=== PATIENT | female | born 1950 | race Caucasian/White ===

== ENCOUNTER 2018-01-03 16:15 | Emergency (ER) | payer OTHER ==
[2018-01-03] MEDS ORDERED: Acetaminophen 500 MG TAB ONE (17:34)
== END 2018-01-03 17:37 | disposition home or self-care (01) ==
LOC: ERS 16:15
DX: M54.2 Cervicalgia (principal); M40.205 Unspecified kyphosis, thoracolumbar region; R51 Headache; F31.9 Bipolar disorder, unspecified; G43.909 Migraine, unspecified, not intractable, without status migrainosus; Z79.899 Other long term (current) drug therapy; V49.60XA Unspecified car occupant injured in collision with unspecified motor vehicles in traffic accident, initial encounter
CPT/HCPCS: 99283

== ENCOUNTER 2018-02-04 16:32 | Emergency (ER) | payer SELFPAY ==
[2018-02-04] MEDS ORDERED: Ondansetron PF 4 MG/2 ML Vial ONE (18:14)
[2018-02-04] MEDS ORDERED: diphenhydrAMINE 50 MG/ML VIAL ONE (18:14)
[2018-02-04] MEDS ORDERED: Ketorolac Tromethamine 30 MG/ML VIAL ONE (18:14)
[2018-02-04] MEDS ORDERED: Metoclopramide HCl 10 MG/2 ML VIAL ONE (18:14)
[2018-02-04] MEDS ORDERED: methylPREDNISolone Sod Succ/PF 125 MG/2 ML VIAL ONE ×2 (19:32→19:47)
[2018-02-04] MEDS ORDERED: Magnesium 2 GM/50 ML BAG (IN WATER) ONE (19:32)
== END 2018-02-04 20:58 | disposition home or self-care (01) ==
LOC: ERS 16:32
DX: G43.909 Migraine, unspecified, not intractable, without status migrainosus (principal); G30.9 Alzheimer's disease, unspecified; F02.80 Dementia in other diseases classified elsewhere, unspecified severity, without behavioral disturbance, psychotic disturbance, mood disturbance, and anxiety; I10 Essential (primary) hypertension; F31.9 Bipolar disorder, unspecified; F41.0 Panic disorder [episodic paroxysmal anxiety]
CPT/HCPCS: 96365; 96367; 96375; J1200; J1885; J2405; J2765; J2930

== ENCOUNTER 2018-07-26 14:19 | Outpatient (CLI) | payer MEDICARE, SELFPAY ==
--- NOTE | 2018-07-26 15:00 | MMO ---
Bilateral MAMMO Bilat Screen [facility]. CLINICAL HISTORY: Patient is 68 years old and is seen for screening. The patient has no family history of breast cancer. The patient has no personal history of cancer. VIEWS: The views performed were: bilateral craniocaudal with tomosynthesis and bilateral mediolateral oblique with tomosynthesis. MAMMOGRAM FINDINGS: The breasts are heterogeneously dense, which could obscure a lesion on mammography. There are benign appearing calcifications seen in both breasts. There are no suspicious masses, suspicious calcifications, or new areas of architectural distortion. IMPRESSION: THERE IS NO MAMMOGRAPHIC EVIDENCE OF MALIGNANCY. A ROUTINE FOLLOW-UP MAMMOGRAM IN 1 YEAR IS RECOMMENDED. THE RESULTS OF THIS EXAM WERE SENT TO THE PATIENT. ACR BI-RADS Category 2 - Benign finding MAMMOGRAPHY NOTE: 1. A negative mammogram report should not delay a biopsy if a dominant of clinically suspicious mass is present. 2. Approximately 10% to 15% of breast cancers are not detected by mammography. 3. Adenosis and dense breasts may obscure an underlying neoplasm.
--- NOTE | 2018-07-26 16:00 | ULT ---
US Pelvic Transvag HISTORY: Postmenopausal bleeding COMPARISON: None. FINDINGS: Real-time imaging of the pelvis was obtained both transabdominally as well as with an endov aginal probe. The uterus measures 2.3 x 5.4 x 5.3 cm. The endometrium is in the 4 mm range. No focal fibroids are seen. The uterus appears heterogeneous. Neither right or left ovary is identified. IMPRESSION: No uterine mass identified. No significant endometrial thickening. Some minimal fluid is seen within the endometrium.
== END 2018-07-26 14:20 | disposition home or self-care (01) ==
LOC: BICMAMMO 14:19
PROVIDERS: ATTEND Family Medicine
DX: Z12.31 Encounter for screening mammogram for malignant neoplasm of breast (principal); N95.0 Postmenopausal bleeding
CPT/HCPCS: 76856; 77063; 77067

== ENCOUNTER 2020-03-13 10:59 | Inpatient (IN) | payer MEDICARE ==
[2020-03-13 11:42] LABS: #Lymphocytes 0.8 thou/uL (1.20-3.40); #Monocytes 0.7 thou/uL (0.11-0.59); #Neutrophils 14.2 thou/uL (1.40-6.50); %Basophils 0.3 % (0.0-1.0); %Eosinophils 0.1 % (0.0-10.0); %Lymphocytes 5.2 % (21.0-51.0); %Monocytes 4.6 % (0.0-10.0); %Neutrophils 89.9 % (42.0-75.0); Hemoglobin 13.6 g/dL (12.0-16.0); Mean Corpuscular HGB CONC 32.4 g/dL (32.0-36.0); Mean Corpuscular Volume 95.5 fL (78.0-98.0); Platelet Count 124 thou/uL (130-400); RBC Distribution Width 12.7 % (11.5-14.5); White Blood Cell (WBC) Count 15.8 thou/uL (4.8-10.8)
[2020-03-13 11:43] LABS: PTT 23.1 sec (22.9-36.1); Prothrombin Time 13.5 sec (12.0-14.7)
[2020-03-13 12:22] LABS: CKMB 9.5 ng/mL (0-6.6)
[2020-03-13 12:25] LABS: Bacteria/HPF None Seen HPF (None Seen); Bilirubin Negative (Negative); Blood, Urine 3+ (Negative); Clarity Clear (Clear); Glucose, Urine (Dipstick) Normal (Negative); Ketone, Urine 60 mg/dL (Negative); Leukocyte Negative Leu/uL (Negative); Nitrite Negative (Negative); Protein, Urine (Dipstick) 100 mg/dL (Neg-Trace); Specific Gravity, Urine 1.022 (1.002-1.036); Squamous Epithelial 0-3 HPF (0-3); Transitional Epithelial 0-3 HPF (None Seen); Urobilinogen Normal mg/dL (Less than 2)
[2020-03-13] MEDS ORDERED: Cefepime 2 GM VIAL ONE ×2 (12:36→22:45)
[2020-03-13 12:43] LABS: ALT (SGPT) 27 U/L (8-55); AST (SGOT) 49 U/L (5-34); Albumin 4.1 g/dL (3.4-4.8); Alkaline Phosphatase 108 U/L (40-110); Anion Gap 19 mmol/L (10-20); BUN (Urea Nitrogen) 13 mg/dL (9.8-20.1); Bilirubin, Total 0.9 mg/dL (0.2-1.2); CK (CPK) 665 U/L (29-168); Calc. Creatinine Clearance 0 mL/min (70-130); Calcium 9.6 mg/dL (7.8-10.44); Carbon Dioxide 22 mmol/L (23-31); Chloride 98 mmol/L (98-107); Globulin 4.9 g/dL (2.4-3.5); Glucose 139 mg/dL (83-110); Potassium 6.1 mmol/L (3.5-5.1); Sodium 133 mmol/L (136-145)
--- NOTE | 2020-03-13 12:55 | RAD ---
EXAM: Portable chest PROVIDED CLINICAL HISTORY: Altered mental status COMPARISON: None FINDINGS: Cardiac and mediastinal silhouette is within normal limits. No focal consolidation, pleural fluid or pneumothorax evident. IMPRESSION: No evidence for an acute cardiopulmonary process.
[2020-03-13] MEDS ORDERED: Acetaminophen 325 MG Suppository ONE (13:13)
[2020-03-13] MEDS ORDERED: Acetaminophen 650 MG Suppository ONE (13:13)
[2020-03-13] MEDS ORDERED: Vancomycin HCl 1.25 GM in Sodium Chloride 0.9% 250 ML 250 ML IVPB SCH (13:15)
[2020-03-13] MEDS ORDERED: Dextrose 50% Abboject 50 ML SYRINGE ONE (13:16)
[2020-03-13] MEDS ORDERED: Calcium Chloride 1 GM/10 ML Abboject SYRINGE ONE (13:16)
--- NOTE | 2020-03-13 13:41 | CT ---
EXAM: BRAIN CT WITHOUT IV CONTRAST: 03/13/20 HISTORY: Altered mental status. COMPARISON: None. FINDINGS: Minimal atrophy changes are noted bilaterally. There is some subtle bilateral white matter and subcor tical low attenuation foci evidence for chronic white matter ischemic change. No focal mass or midlin e shift. No intra or extra-axial hemorrhage. Minimal right frontal sinus mucosal change. IMPRESSION: No mass, bleed or other significant acute process. POS: OFF
[2020-03-13] MEDS ORDERED: Ondansetron PF 4 MG/2 ML Vial IVP PRN (13:42)
[2020-03-13] MEDS ORDERED: Lidocaine 1% w/Epinephrine 1:100K 20 ML VIAL ONE (13:44)
--- NOTE | 2020-03-13 14:10 | RAD ---
Exam: Abdomen one view HISTORY: MRI clearance FINDINGS: There appear to be mildly dilated air-filled loops of small bowel. There are no suspicious radiopaque densities projecting over the abdomen and visualized upper pelvis. No acute osseous abnormalities. IMPRESSION: No radiopaque metallic densities in the visualized abdomen.
[2020-03-13 14:16] LABS: Anion Gap 17 mmol/L (10-20); BUN (Urea Nitrogen) 12 mg/dL (9.8-20.1); Calc. Creatinine Clearance 0 mL/min (70-130); Calcium 8.8 mg/dL (7.8-10.44); Carbon Dioxide 21 mmol/L (23-31); Chloride 102 mmol/L (98-107); Glucose 120 mg/dL (83-110); Magnesium 1.6 mg/dL (1.6-2.6); Potassium 3.7 mmol/L (3.5-5.1); Sodium 136 mmol/L (136-145)
--- NOTE | 2020-03-13 14:54 | MRI ---
MRI BRAIN NONCONTRAST: DATE: 03/13/2020 HISTORY: 70-year-old female with altered mental status FINDINGS: There is ventriculomegaly, probably due to brain parenchymal volume loss. There is no obstructive hyd rocephalus. There is no midline shift or any other evidence of mass effect. There is no extra-axial fluid collection. There are mild chronic ischemic white matter changes due to microvascular atheroscl erosis. There is diffuse brain parenchymal volume loss, not unusual for patient's age. There is no evidence of recent hemorrhage or restricted diffusion. IMPRESSION: 1) Involutional changes and mild chronic ischemic white matter changes. 2) otherwise negative
[2020-03-13 15:25] LABS: Lactic Acid 2.7 mmol/L (0.5-2.2)
[2020-03-13 15:30] LABS: Troponin I 0.095 ng/mL (< 0.028)
--- NOTE | 2020-03-13 16:19 | ULT ---
Venous duplex sonogram right lower extremity HISTORY: Right leg pain and edema. FINDINGS: The right common femoral vein and greater saphenous junction were evaluated along with the femoral, deep femoral, popliteal, and posterior tibial veins. There is good color and spectral Doppler flow, compression, and augmentation. IMPRESSION : Normal exam.
[2020-03-13] MEDS: Sodium Chloride 0.9% 1,000 ML IV SCH (17:04)
[2020-03-13 17:55] LABS: Troponin I 0.113 ng/mL (< 0.028)
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
--- NOTE | 2020-03-13 19:30 | PDOC.EVN ---
Event Note - Event Note Event Note: pt more awake and was noted to have erythema to her right lower ext. Case discussed with ER physician will not do LP since we do not think it is meningitis. will continue broad spectrum abx.
[2020-03-13 22:04] LABS: Lactic Acid 1.6 mmol/L (0.5-2.2)
[2020-03-13 22:13] LABS: Troponin I 0.095 ng/mL (< 0.028)
[2020-03-13 22:45] LABS: SARS-CoV-2 MS2 Positive; SARS-CoV-2 N Gene Negative; SARS-CoV-2 S Gene Negative; SARS-CoV-2 by NAA Not Detected (NotDetected); SARS-CoV-2 orf1ab Negative
[2020-03-13] MEDS: Atorvastatin Calcium 40 MG TAB PO SCH (22:47)
[2020-03-13] MEDS: Cefepime 2 GM in Sodium Chloride 0.9% 100 ML IVPB SCH (22:48)
[2020-03-14 01:37] LABS: Troponin I 0.085 ng/mL (< 0.028)
[2020-03-14 02:17] VITALS: BMI 27.5
[2020-03-14] MEDS: Vancomycin HCl 1.25 GM in Sodium Chloride 0.9% 250 ML 250 ML IVPB SCH ×2 (03:39→17:10)
[2020-03-14] MEDS ORDERED: Magnesium 2 GM/50 ML 2 GM in Premix Bag 1 BAG IVPB SCH (05:30)
[2020-03-14 06:01] LABS: Anion Gap 11 mmol/L (10-20); BUN (Urea Nitrogen) 14 mg/dL (9.8-20.1); Calc. Creatinine Clearance 97 mL/min (70-130); Calcium 7.9 mg/dL (7.8-10.44); Carbon Dioxide 21 mmol/L (23-31); Cardiac Risk 2.7 (Less than 4.5); Chloride 107 mmol/L (98-107); Cholesterol 128 mg/dl (< 200 Desired); Glucose 165 mg/dL (83-110); HDL Cholesterol 47 mg/dL (>60 Neg Risk); LDL Cholesterol, Calculated 66 mg/dL; Potassium 3.2 mmol/L (3.5-5.1); Sodium 136 mmol/L (136-145); Triglycerides 74 mg/dL (Less than 150)
[2020-03-14] MEDS: Cefepime 2 GM in Sodium Chloride 0.9% 100 ML IVPB SCH ×3 (06:34→21:45)
[2020-03-14 07:23] LABS: #Lymphocytes 0.7 thou/uL (1.20-3.40); #Monocytes 0.5 thou/uL (0.11-0.59); #Neutrophils 4.9 thou/uL (1.40-6.50); %Basophils 0.2 % (0.0-1.0); %Eosinophils 0.4 % (0.0-10.0); %Lymphocytes 10.8 % (21.0-51.0); %Monocytes 8.8 % (0.0-10.0); %Neutrophils 79.7 % (42.0-75.0); Hemoglobin 10.7 g/dL (12.0-16.0); Mean Corpuscular HGB CONC 32.5 g/dL (32.0-36.0); Mean Corpuscular Hemoglobin 31.1 pg (27.0-31.0); Mean Corpuscular Volume 95.9 fL (78.0-98.0); Mean Platelet Volume 10.5 fL (7.4-10.4); Platelet Count 84 thou/uL (130-400); Platelet Morphology Comment Appears Decreased; RBC Distribution Width 12.6 % (11.5-14.5); Red Blood Cell (RBC) Count 3.44 mill/uL (4.20-5.40); White Blood Cell (WBC) Count 6.1 thou/uL (4.8-10.8)
[2020-03-14 07:46] LABS: Amphetamine Not Detected (NotDetected); Barbiturates Screen Not Detected (NotDetected); Benzodiazepine Screen Not Detected (NotDetected); Cocaine Metabolite Screen Not Detected (NotDetected); Medtox Control Line Valid? VALID (VALID); Medtox Reader # READER 1; Methadone Not Detected (NotDetected); Methamphetamine Not Detected (NotDetected); Opiate Screen Not Detected (NotDetected); Oxycodone Screen Not Detected (NotDetected); Phencyclidine (PCP) Not Detected (NotDetected); THC/Cannabinoid Screen Not Detected (NotDetected); Tricyclic Screen Not Detected (NotDetected)
[2020-03-14] MEDS: Sodium Chloride 0.9% 1,000 ML IV SCH (08:25)
[2020-03-14] MEDS: Aspirin 81 mg Enteric Coated Tablet PO SCH (08:26)
[2020-03-14] MEDS: Enoxaparin Sodium 40 MG/0.4 ML SYRINGE SC SCH (08:26)
[2020-03-14] MEDS ORDERED: Electrolyte Replacement Protocol 1 EACH FS SCH (09:00)
--- NOTE | 2020-03-14 12:14 | CON ---
DATE OF CONSULTATION: 03/14/2020 CONSULTING PHYSICIAN: Hospitalist Service. IMPRESSION: Painful swollen right leg suspicious for deep venous thrombosis. PLAN: Workup as you feel indicated. HISTORY OF PRESENT ILLNESS: Ms. Haque is an elderly lady who presented with complaints of several days of progressive pain in her right leg. She has also noted some swelling. 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 The leg began to feel more heavy and so she came in for evaluation. She had an MRI of the brain done, which did not reveal any evidence of an acute ischemic event. She denies any tingling or numbness. She has not had any problems with the right arm or face. PAST MEDICAL HISTORY: Otherwise unremarkable. ALLERGIES: PENICILLIN. SOCIAL HISTORY: No tobacco or alcohol use. FAMILY HISTORY: Noncontributory. REVIEW OF SYSTEMS: Ten-system review of systems is otherwise negative. PHYSICAL EXAMINATION: GENERAL: She is a slightly overweight, elderly woman, lying in bed, in no acute distress. VITAL SIGNS: Have been stable. She is afebrile. HEENT: Pupils are equal and reactive. Conjunctivae are clear. NECK: Supple. EXTREMITIES: There is swelling of the right calf with tenderness to palpation. SKIN: Unremarkable. NEUROLOGIC: She is alert and appropriate. Her speech is fluent and clear. She does not have any focal neurologic deficits. SUMMARY: This is an elderly woman with a painful swollen right leg. She has ruled out for stroke. Job ID: [id number]
[2020-03-14] MEDS: Acetaminophen 325 MG TAB PO PRN ×2 (13:00→22:58)
[2020-03-14] MEDS ORDERED: Potassium Chloride 20 MEQ TAB PO SCH (13:45)
[2020-03-14] MEDS ORDERED: Polyethylene Glycol 3350 17 GM Packet PO SCH (14:45)
[2020-03-14] MEDS ORDERED: Diltiazem 125 MG in Sodium Chloride 0.9% 100 ML IVPB SCH (16:15)
--- NOTE | 2020-03-14 17:37 | RAD ---
RIGHT HIP TWO VIEWS: 03/14/20 INDICATION: History of right hip pain. FINDINGS: There is mild right hip osteoarthrosis. There is an ossific density within the soft tissues medial to the right hip that cannot be further localized. IMPRESSION: 1. Mild right hip osteoarthrosis. 2. Small ossific density is seen within the medial soft tissues of the right thigh. POS: BH
--- NOTE | 2020-03-14 19:02 | PDOC.HOSPP ---
- Subjective Encounter Date: 03/14/20 Encounter Time: 11:30 Subjective: Patient up in bed pains. She is more awake and oriented - Objective Vital Signs & Weight: Vital Signs (12 hours) Temp Pulse Pulse Pulse Resp BP BP 03/14/20 15:48 134 H 03/14/20 15:45 133 H 03/14/20 15:44 140 H 03/14/20 15:42 132 H 03/14/20 15:37 134 H 03/14/20 15:27 98.3 F 134 H 20 03/14/20 14:20 80 85 121/73 158/73 H 03/14/20 13:02 87 03/14/20 11:38 98.4 F 62 19 03/14/20 08:37 88 85 152/70 H 142/69 H 03/14/20 07:22 98.2 F 78 17 BP Pulse Ox 03/14/20 15:48 117/68 03/14/20 15:45 106/78 03/14/20 15:44 114/88 03/14/20 15:42 112/84 03/14/20 15:37 136/81 03/14/20 15:27 136/87 94 L 03/14/20 14:20 03/14/20 13:02 135/83 03/14/20 11:38 136/70 96 03/14/20 08:37 03/14/20 07:22 127/96 H 95 Weight Weight 191 lb 12.8 oz I&O: 03/13/20 03/14/20 03/15/20 06:59 06:59 06:59 Intake Total 720 Output Total 5 Balance 715 Result Diagrams: 03/14/20 04:51 03/14/20 04:51 Hospitalist ROS - Review of Systems Cardiovascular: denies: chest pain, palpitations, orthopnea, paroxysmal noc. dyspnea, edema, light headedness, other Gastrointestinal: denies: nausea, vomiting, abdominal pain, diarrhea, constipation, melena, hematochezia, other Genitourinary: denies: dysuria, frequency, incontinence, hematuria, retention, other - Medication Medications: Active Medications Generic Name Dose Route Start Last Admin Trade Name Freq PRN Reason Stop Dose Admin Acetaminophen 650 mg 03/13/20 13:42 03/14/20 13:00 Acetaminophen 325 Mg Tab PO 650 mg Q6H PRN Administration Headache/Fever/Mild Pain (1-3) Aspirin 81 mg 03/14/20 09:00 03/14/20 08:26 Aspirin 81 Mg Enteric Coated Tablet PO 81 mg DAILY JAYCOB Administration Atorvastatin Calcium 40 mg 03/13/20 21:00 03/13/20 22:47 Atorvastatin Calcium 40 Mg Tab PO 40 mg HS JAYCOB Administration Enoxaparin Sodium 40 mg 03/14/20 09:00 03/14/20 08:26 Enoxaparin Sodium 40 Mg/0.4 Ml Syringe SC 40 mg 0900 JAYCOB Administration Vancomycin HCl 1.25 gm/ Sodium 250 mls @ 166.67 mls/hr 03/14/20 03:00 03/14/20 17:10 Chloride IVPB 250 mls 0300,1500 JAYCOB Administration Cefepime HCl 2 gm/ Sodium 100 mls @ 200 mls/hr 03/13/20 22:00 03/14/20 13:00 Chloride IVPB 100 mls Q8HR JAYCOB Administration Diltiazem HCl 125 mg/ Sodium 125 mls @ 5 mls/hr 03/14/20 16:15 03/14/20 17:10 Chloride IVPB 125 mls INF JAYCOB Administration Protocol 5 MG/HR - Exam Heart: negative: RRR, no murmur, no gallops, no rubs, normal peripheral pulses, irregular, diminshed peripheral pulses, murmur present, II/IV, III/IV Respiratory: negative: CTAB, no wheezes, no rales, no ronchi, normal chest expansion, no tachypnea, normal percussion, rales, rhonchi, tachypneic, wheezes Gastrointestinal: negative: soft, non-tender, non-distended, normal bowel sounds, no palpable masses, no hepatomegaly, no splenomegaly, no bruit, no guarding, no rigidity, tender to palpation, distended, diminished bowl sounds, voluntary guarding Extremities: 1+ LE edema Extremities - other findings: Right lower leg erythema noted Hosp A/P (1) Acute metabolic encephalopathy Code(s): G93.41 - METABOLIC ENCEPHALOPATHY Status: Acute (2) Cellulitis of leg, right Code(s): L03.115 - CELLULITIS OF RIGHT LOWER LIMB Status: Acute (3) Atrial flutter Code(s): I48.92 - UNSPECIFIED ATRIAL FLUTTER Status: Acute (4) Lactic acidosis Code(s): E87.2 - ACIDOSIS Status: Acute (5) Hypokalemia Code(s): E87.6 - HYPOKALEMIA Status: Acute (6) Elevated troponin Code(s): R77.8 - OTHER SPECIFIED ABNORMALITIES OF PLASMA PROTEINS Status: Acute (7) Bacteremia Code(s): R78.81 - BACTEREMIA Status: Acute - Plan Continue antibiotics. Venous Doppler does not indicate any acute DVT. Patient's heart rate was elevated at 1 40-1 50 possible a flutter versus A. fib. Patient given Cardizem responded well. We will continue Cardizem drip and consult cardiology. Echo pending. Patient's mentation back at baseline.
[2020-03-14] MEDS: Senokot S 8.6-50 MG TAB PO SCH (21:45)
[2020-03-14] MEDS: Atorvastatin Calcium 40 MG TAB PO SCH (21:45)
[2020-03-15 02:37] LABS: Vancomycin, Trough 14.5 ug/mL
[2020-03-15] MEDS: Vancomycin HCl 1.25 GM in Sodium Chloride 0.9% 250 ML 250 ML IVPB SCH (03:05)
[2020-03-15] MEDS: Cefepime 2 GM in Sodium Chloride 0.9% 100 ML IVPB SCH ×2 (06:10→14:18)
[2020-03-15] MEDS: Acetaminophen 325 MG TAB PO PRN ×2 (06:10→14:18)
--- NOTE | 2020-03-15 08:50 | EKG ---
Test Reason : Blood Pressure : / mmHG Vent. Rate : 139 BPM Atrial Rate : 139 BPM P-R Int : 138 ms QRS Dur : 098 ms QT Int : 326 ms P-R-T Axes : 000 030 -08 degrees QTc Int : 496 ms Sinus tachycardia Incomplete right bundle branch block Marked ST abnormality, possible inferior subendocardial injury Abnormal ECG When compared with ECG of 13-MAR-2020 12:56, (Unconfirmed) No significant change was found Confirmed by KUNAL GENTILE, SFiona ([id number]) on 03/15/2020 8:50:09 AM Referred By: SEKOU Confirmed By:DR. Phil SYED MD
[2020-03-15] MEDS: Aspirin 81 mg Enteric Coated Tablet PO SCH (09:05)
[2020-03-15] MEDS: Polyethylene Glycol 3350 17 GM Packet PO SCH (09:07)
[2020-03-15] MEDS: Senokot S 8.6-50 MG TAB PO SCH ×2 (09:07→19:48)
[2020-03-15 09:29] LABS: Magnesium 1.8 mg/dL (1.6-2.6); Potassium 3.4 mmol/L (3.5-5.1)
[2020-03-15] MEDS ORDERED: Potassium Chloride 20 MEQ TAB PO SCH ×2 (10:00→14:00)
[2020-03-15] MEDS ORDERED: Magnesium 2 GM/50 ML 2 GM in Premix Bag 1 BAG IVPB SCH (10:00)
[2020-03-15] MEDS: Enoxaparin Sodium 40 MG/0.4 ML SYRINGE SC SCH (10:44)
[2020-03-15] MEDS ORDERED: Potassium Bicarbonate/Cit Ac 20 MEQ TAB PO SCH ×2 (11:00→15:30)
--- NOTE | 2020-03-15 15:52 | CON ---
DATE OF CONSULTATION: 03/15/2020 REASON FOR CONSULTATION: Cellulitis with bacteremia. HISTORY OF PRESENT ILLNESS: A 70-year-old, history of hypertension and recurrent episodes of cellulitis, she has had probably at least 3 or 4 in the past few years, who developed another one of such episodes in the right lower extremity associated with pain. Did not have any headaches. No respiratory symptoms. No abdominal pain, diarrhea, or genitourinary symptoms. PAST MEDICAL HISTORY: Hypertension, cellulitis, migraines. PAST SURGICAL HISTORY: x2. PAST PSYCHIATRIC HISTORY: History of bipolar disorder. SOCIAL HISTORY: She is more of a passive smoker in the past, but never actually smoked herself. 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 FAMILY HISTORY: Alzheimer disease. ALLERGIES: PENICILLIN WITH RASH WHEN SHE WAS A CHILD AND THIS IS A REPORT FROM HER MOTHER. CURRENT MEDICATION LIST: 1. Cefepime. 2. Lipitor. 3. Eliquis. PHYSICAL EXAMINATION: VITAL SIGNS: T-max 99, blood pressure 120/63, heart rate 67, respiratory rate 20, O2 saturation 97. GENERAL: Does not appear in distress. HEENT: Ocular movements conjugate. Sclerae white. Oral cavity with only a few remaining teeth with marked decay and gum disease. SKIN: Shows the area of erythema, circumferential distribution, very fairly narrow band in the lower right leg. She has quite a few spots with shallow ulcerations in the lower extremities and evidence of stasis dermatitis. Onychodystrophy is noted as well in toenails. No lymphadenopathy. NECK: Supple. No jugular venous distention. LUNGS: Symmetric, clear breath sounds. HEART: S1 and S2, regular rate without murmurs. No S3 or S4. ABDOMEN: Soft. Not distended. Some bladder distention. BACK: Some back tenderness. MUSCULOSKELETAL: Chronic osteoarthrosis, but no acute joint inflammatory process noted. Pulses are 1+ in dorsalis pedis. Plantar responses are flexor. Moves all extremities equally. NEUROLOGIC: Awake, oriented. Follows commands. Speech is normal. Orientation is normal. LABORATORY DATA: White cell count 15.8, down to 6.1; hemoglobin 10.7; MCV 95; platelets 84,000; 79% neutrophils. INR 1.0. Creatinine 0.73. Lactic acid 1.6. CK 665. Lactic acid 2.7. Urinalysis with 7 to 10 wbc's. Blood cultures with group G Streptococcus, one set. Urine culture negative. IMAGING STUDIES: We have an echocardiogram with EF 55% to 60%. There is a hip x-ray with osteoarthrosis. There is a vascular ultrasound with normal exam with a venous Doppler. There is an abdominal x-ray with no abnormalities noted. There is a brain MRI done on admission with involutional changes, ischemic white matter changes, otherwise negative. Finally, a chest x-ray with normal findings. ASSESSMENT: Hypertension, prior episodes of cellulitis, stasis dermatitis, venous insufficiency with another episode of cellulitis secondary to group G Streptococcus. At this point, switch her to cephazolin or cefazolin. Once there is further clinical improvement, transition to oral Keflex for discharge planning 500 t.i.d. and then suppressive Keflex 250 mg b.i.d. plus compression stockings. We will be glad to follow her up in the outpatient setting to coordinate and follow the prophylactic measures. She has chronic back issues and she is at risk of developing diskitis, osteomyelitis in the medium term, so we will have to continue monitoring for worsening back pain. She may require an evaluation for that depending on clinical course. Endocarditis is very unlikely since only one set was positive. Job ID: [id number]
--- NOTE | 2020-03-15 17:22 | PDOC.HOSPP ---
- Subjective Encounter Date: 03/15/20 Encounter Time: 13:00 Subjective: Patient up in bed no complaints - Objective Vital Signs & Weight: Vital Signs (12 hours) Temp Pulse Resp BP Pulse Ox 03/15/20 16:50 99.7 F H 75 20 139/72 95 03/15/20 15:59 98.9 F 78 20 135/79 98 03/15/20 11:18 98.3 F 67 20 121/63 97 03/15/20 07:22 98.3 F 73 20 137/74 96 Weight Weight 191 lb 12.8 oz I&O: 03/14/20 03/15/20 03/16/20 06:59 06:59 06:59 Intake Total 1445 480 Output Total 5 Balance 1440 480 Result Diagrams: 03/14/20 04:51 03/15/20 15:00 Hospitalist ROS - Review of Systems Cardiovascular: denies: chest pain, palpitations, orthopnea, paroxysmal noc. dyspnea, edema, light headedness, other Gastrointestinal: denies: nausea, vomiting, abdominal pain, diarrhea, constipation, melena, hematochezia, other - Medication Medications: Active Medications Generic Name Dose Route Start Last Admin Trade Name Freq PRN Reason Stop Dose Admin Acetaminophen 650 mg 03/13/20 13:42 03/15/20 14:18 Acetaminophen 325 Mg Tab PO 650 mg Q6H PRN Administration Headache/Fever/Mild Pain (1-3) Atorvastatin Calcium 40 mg 03/13/20 21:00 03/14/20 21:45 Atorvastatin Calcium 40 Mg Tab PO 40 mg HS JAYCOB Administration Polyethylene Glycol 17 gm 03/15/20 09:00 03/15/20 09:07 Polyethylene Glycol 3350 17 Gm Packet PO Not Given DAILY JAYCOB Potassium Bicarbonate/Citric Acid 40 meq 03/15/20 15:30 03/15/20 15:38 Potassium Bicarbonate/Cit Ac 20 Meq Tab PO 03/15/20 17:30 40 meq NOW JAYCOB Administration Senna/Docusate Sodium 1 tab 03/14/20 21:00 03/15/20 09:07 Senokot S 8.6-50 Mg Tab PO Not Given BID JAYCOB Sodium Chloride 10 ml 03/13/20 13:34 03/15/20 09:08 Flush - Normal Saline 10 Ml Syringe IVF 10 ml PRN PRN Administration Saline Flush - Exam Neck: negative: supple, symmetric, no JVD, no thyromegaly, no lymphadenopathy, no carotid bruit, JVD Heart: negative: RRR, no murmur, no gallops, no rubs, normal peripheral pulses, irregular, diminshed peripheral pulses, murmur present, II/IV, III/IV Respiratory: negative: CTAB, no wheezes, no rales, no ronchi, normal chest expansion, no tachypnea, normal percussion, rales, rhonchi, tachypneic, wheezes Gastrointestinal: negative: soft, non-tender, non-distended, normal bowel sounds, no palpable masses, no hepatomegaly, no splenomegaly, no bruit, no guarding, no rigidity, tender to palpation, distended, diminished bowl sounds, voluntary guarding Hosp A/P (1) Acute metabolic encephalopathy Code(s): G93.41 - METABOLIC ENCEPHALOPATHY Status: Acute (2) Cellulitis of leg, right Code(s): L03.115 - CELLULITIS OF RIGHT LOWER LIMB Status: Acute (3) Atrial flutter Code(s): I48.92 - UNSPECIFIED ATRIAL FLUTTER Status: Acute (4) Lactic acidosis Code(s): E87.2 - ACIDOSIS Status: Acute (5) Hypokalemia Code(s): E87.6 - HYPOKALEMIA Status: Acute (6) Elevated troponin Code(s): R77.8 - OTHER SPECIFIED ABNORMALITIES OF PLASMA PROTEINS Status: Acute (7) Bacteremia Code(s): R78.81 - BACTEREMIA Status: Acute - Plan Continue antibiotics. Venous Doppler does not indicate any acute DVT. Patient's heart rate was elevated at 1 40-1 50 possible a flutter versus A. fib. Patient given Cardizem responded well. We will continue Cardizem drip and consult cardiology. Echo pending. Patient's mentation back at baseline. 03/15 patient states that her right leg feels much better. We will continue ant ibiotics for now. We will start her on Eliquis and she has been starting on a beta-cresencio. Echo done EF of 55 to 60%
[2020-03-15 17:58] LABS: Troponin I 0.047 ng/mL (< 0.028)
[2020-03-15] MEDS: Atorvastatin Calcium 40 MG TAB PO SCH (19:48)
[2020-03-15] MEDS: Apixaban 5 MG TAB PO SCH (19:48)
[2020-03-15] MEDS: CEFAZOLIN 2 GM in Premix Bag 1 BAG IVPB SCH (20:04)
[2020-03-16 02:18] LABS: Anion Gap 14 mmol/L (10-20); BUN (Urea Nitrogen) 9 mg/dL (9.8-20.1); Calc. Creatinine Clearance 107 mL/min (70-130); Calcium 8.2 mg/dL (7.8-10.44); Carbon Dioxide 23 mmol/L (23-31); Chloride 102 mmol/L (98-107); Glucose 133 mg/dL (83-110); Potassium 4.1 mmol/L (3.5-5.1); Sodium 135 mmol/L (136-145)
[2020-03-16] MEDS: CEFAZOLIN 2 GM in Premix Bag 1 BAG IVPB SCH ×3 (05:27→21:42)
[2020-03-16] MEDS ORDERED: Magnesium 2 GM/50 ML 2 GM in Premix Bag 1 BAG IVPB SCH (06:30)
[2020-03-16] MEDS: Apixaban 5 MG TAB PO SCH ×2 (08:33→19:59)
[2020-03-16] MEDS: Polyethylene Glycol 3350 17 GM Packet PO SCH (08:35)
[2020-03-16] MEDS: Senokot S 8.6-50 MG TAB PO SCH ×2 (08:35→19:59)
--- NOTE | 2020-03-16 15:03 | CON ---
DATE OF CONSULTATION: 03/15/2020 HISTORY OF PRESENT ILLNESS: The patient is a pleasant 70-year-old woman who presented with right foot pain and altered mental status and was noted to have an irregular heart rhythm. The patient has no previous cardiac history. She does report having occasional palpitations. The patient denies having any chest discomfort. The patient was admitted to the hospital when she was confused. PATIENT'S PAST MEDICAL HISTORY: 1. Bipolar disorder. 2. Hypertension. 3. Migraine headaches. PAST SURGICAL HISTORY: . SOCIAL HISTORY: Nonsmoker. ALLERGIES: PENICILLIN. FAMILY HISTORY: No strong family history of coronary artery disease. MEDICATIONS: PHYSICAL EXAMINATION: GENERAL: Thin woman, in no acute distress. VITAL SIGNS: Blood pressure was 121/63. NECK: No jugular venous distention. LUNGS: Clear to auscultation. HEART: Regular rate and rhythm. Normal S1, S2. 1/6 systolic murmur. ABDOMEN: Nondistended. EXTREMITIES: There was trace edema. VASCULAR: Radial pulses 2+. LABORATORY DATA: Sodium 135, potassium 4.1, chloride 102, bicarbonate 23, BUN 9, creatinine 0.6, glucose 133. Troponin 0.047. Her white blood count 6.1, hemoglobin 10.7, hematocrit 32.9, and her platelets were 84. EKG sinus tachycardia with incomplete bundle-branch block. Telemetry monitoring paroxysmal atrial fibrillation. IMPRESSION: 1. New-onset atrial fibrillation. 2. Altered mental status. 3. Bipolar disorder. 4. Aortic stenosis. 5. Hypertension. This patient has paroxysmal atrial fibrillation. she has a CHADS-VASc score of 3. She needs to be on long-term anticoagulation therapy for prevention of thromboembolism. The patient will start the patient on Toprol and Eliquis. We will follow this patient with you through her hospitalization. Job ID: [id number] MTDD
--- NOTE | 2020-03-16 16:08 | PDOC.HOSPP ---
- Subjective Encounter Date: 03/16/20 Encounter Time: 10:30 Subjective: Patient up in bed no complaints. - Objective Vital Signs & Weight: Vital Signs (12 hours) Temp Pulse Resp BP BP Pulse Ox 03/16/20 11:37 98.3 F 72 18 122/69 98 03/16/20 08:43 99.4 F 03/16/20 08:30 80 16 137/88 96 Weight Weight 191 lb 12.8 oz I&O: 03/15/20 03/16/20 03/17/20 06:59 06:59 06:59 Intake Total 1445 1510 360 Output Total 5 Balance 1440 1510 360 Result Diagrams: 03/14/20 04:51 03/16/20 01:48 Hospitalist ROS - Review of Systems Respiratory: denies: cough, dry, shortness of breath, hemoptysis, SOB with excertion, pleuritic pain, sputum, wheezing, other Cardiovascular: denies: chest pain, palpitations, orthopnea, paroxysmal noc. dyspnea, edema, light headedness, other Gastrointestinal: denies: nausea, vomiting, abdominal pain, diarrhea, constipation, melena, hematochezia, other - Medication Medications: Active Medications Generic Name Dose Route Start Last Admin Trade Name Freq PRN Reason Stop Dose Admin Acetaminophen 650 mg 03/13/20 13:42 03/15/20 14:18 Acetaminophen 325 Mg Tab PO 650 mg Q6H PRN Administration Headache/Fever/Mild Pain (1-3) Apixaban 5 mg 03/15/20 21:00 03/16/20 08:33 Apixaban 5 Mg Tab PO 5 mg BID JAYCOB Administration Atorvastatin Calcium 40 mg 03/13/20 21:00 03/15/20 19:48 Atorvastatin Calcium 40 Mg Tab PO 40 mg HS JAYCOB Administration Cefazolin Sodium/Dextrose 2 gm 50 mls @ 100 mls/hr 03/15/20 22:00 03/16/20 13:52 / Device IVPB 50 mls Q8HR JAYCOB Administration Polyethylene Glycol 17 gm 03/15/20 09:00 03/16/20 08:35 Polyethylene Glycol 3350 17 Gm Packet PO Not Given DAILY JAYCOB Senna/Docusate Sodium 1 tab 03/14/20 21:00 03/16/20 08:35 Senokot S 8.6-50 Mg Tab PO Not Given BID JAYCOB Sodium Chloride 10 ml 03/13/20 13:34 03/15/20 09:08 Flush - Normal Saline 10 Ml Syringe IVF 10 ml PRN PRN Administration Saline Flush - Exam Heart: negative: RRR, no murmur, no gallops, no rubs, normal peripheral pulses, irregular, diminshed peripheral pulses, murmur present, II/IV, III/IV Respiratory: negative: CTAB, no wheezes, no rales, no ronchi, normal chest expansion, no tachypnea, normal percussion, rales, rhonchi, tachypneic, wheezes Gastrointestinal: negative: soft, non-tender, non-distended, normal bowel sounds, no palpable masses, no hepatomegaly, no splenomegaly, no bruit, no guarding, no rigidity, tender to palpation, distended, diminished bowl sounds, voluntary guarding Extremities: negative: no cyanosis, no clubbing, no edema, 1+ LE edema, 2+ LE edema, clubbing Hosp A/P (1) Acute metabolic encephalopathy Code(s): G93.41 - METABOLIC ENCEPHALOPATHY Status: Acute (2) Cellulitis of leg, right Code(s): L03.115 - CELLULITIS OF RIGHT LOWER LIMB Status: Acute (3) Atrial flutter Code(s): I48.92 - UNSPECIFIED ATRIAL FLUTTER Status: Acute (4) Lactic acidosis Code(s): E87.2 - ACIDOSIS Status: Acute (5) Hypokalemia Code(s): E87.6 - HYPOKALEMIA Status: Acute (6) Elevated troponin Code(s): R77.8 - OTHER SPECIFIED ABNORMALITIES OF PLASMA PROTEINS Status: Acute (7) Bacteremia Code(s): R78.81 - BACTEREMIA Status: Acute - Plan Continue antibiotics. Venous Doppler does not indicate any acute DVT. Patient's heart rate was elevated at 1 40-1 50 possible a flutter versus A. fib. Patient given Cardizem responded well. We will continue Cardizem drip and consult cardiology. Echo pending. Patient's mentation back at baseline. 03/15 patient states that her right leg feels much better. We will continue antibiotics for now. We will start her on Eliquis and she has been starting on a beta-cresencio. Echo done EF of 55 to 60% 03/16 we will continue antibiotics for now. Patient started Eliquis tolerating it well. Patient had 4 beats of V. tach. Will check electrolytes. Patient has been ambulating with PT without any problems. No pain in her right leg. Doppler of the right leg negative for DVT.
[2020-03-16] MEDS: Atorvastatin Calcium 40 MG TAB PO SCH (19:59)
[2020-03-17] MEDS: CEFAZOLIN 2 GM in Premix Bag 1 BAG IVPB SCH (05:13)
[2020-03-17 05:27] LABS: Hemoglobin 10.5 g/dL (12.0-16.0); Platelet Count 110 thou/uL (130-400)
[2020-03-17] MEDS ORDERED: Magnesium 2 GM/50 ML 2 GM in Premix Bag 1 BAG IVPB SCH (06:30)
[2020-03-17 07:52] VITALS: TEMP 98.5
[2020-03-17] MEDS: Apixaban 5 MG TAB PO SCH (09:54)
[2020-03-17] MEDS: Polyethylene Glycol 3350 17 GM Packet PO SCH (09:56)
[2020-03-17] MEDS: Senokot S 8.6-50 MG TAB PO SCH (09:56)
[2020-03-17 11:43] VITALS: BP 165/96
[2020-03-17] MEDS ORDERED: Cephalexin 250 MG CAP PO SCH (12:30)
--- NOTE | 2020-03-17 13:52 | PDOC.DS.DS ---
Provider - Provider Date of Admission: 03/13/20 13:42 Date of Discharge: 03/17/20 Admitting Provider: Cristine Mcallister MD Primary Care Physician: Gadiel Michel MD Course - Hospital Course Hospital Course: Patient is a very pleasant 70-year-old female who initially presented to the hospital with change in mental status. Patient was noted to have a right lower extremity cellulitis. Her mentation improved. She was noted to have A. fib a flutter she was seen by cardiology echo was done. She was started on metoprolol rate was controlled and she was started on Eliquis. Risks of bleeding was explained to the patient. Echo indicated EF 55 to 60%. Patient was ambulated with physical therapy she did well. She did have initially right leg pain which resolved. Her venous Dopplers of the right leg was negative for DVT. Patient will be discharged home to follow-up with her primary and cardiology. She will require stress test. Patient will require suppression dose of 250 mg twice daily with compression stockings per IDs recommendation. I have provided her with 10 days of medication. Blood cultures indicated Streptococcus dysgalactiae. Resuscitation Status: 03/13/20 13:42 Resuscitation Status Routine Resuscitation Status: FULL: Full Resuscitation - Labs Lab Results: 03/17/20 04:54 03/17/20 04:54 Abnormal Lab Results - Last 48 hrs 03/15/20 17:16: Troponin I 0.047 H 03/16/20 01:48: Sodium 135 L, BUN 9 L 03/17/20 04:54: Hgb 10.5 L, Hct 32.4 L, Plt Count 110 L Microbiology - Entire Visit 03/13/20 11:45 Venous blood - Left Hand Blood Culture - Final S.dysgalactiae ssp equisimilis 03/13/20 12:23 Venous blood - Left Hand Blood Culture - Preliminary NO GROWTH AT 48 HOURS 03/13/20 Unknown Urine Straight Catheter Urine Culture - Final NO GROWTH AT 48 HOURS - Physical Exam Vitals: Vital Signs (12 hours) Temp Pulse Resp BP BP Pulse Ox 03/17/20 11:42 98.5 F 95 16 165/96 H 96 03/17/20 07:52 98.5 F 62 16 151/81 H 95 03/17/20 03:48 98.2 F 74 18 153/85 H 95 Weight Weight 191 lb 12.8 oz Physical Exam: The patient was seen and examined on the day of discharge. Problem - Problem (1) Acute metabolic encephalopathy Code(s): G93.41 - METABOLIC ENCEPHALOPATHY Status: Acute (2) Cellulitis of leg, right Code(s): L03.115 - CELLULITIS OF RIGHT LOWER LIMB Status: Acute (3) Atrial flutter Code(s): I48.92 - UNSPECIFIED ATRIAL FLUTTER Status: Acute (4) Lactic acidosis Code(s): E87.2 - ACIDOSIS Status: Acute (5) Hypokalemia Code(s): E87.6 - HYPOKALEMIA Status: Acute (6) Elevated troponin Code(s): R77.8 - OTHER SPECIFIED ABNORMALITIES OF PLASMA PROTEINS Status: Acute (7) Bacteremia Code(s): R78.81 - BACTEREMIA Status: Acute Plan - Discharge Medications Prescriptions: Apixaban [Eliquis] 5 mg PO BID #60 tab Saccharomyces Boulardii [Florastor] 250 mg PO DAILY #30 capsule Cephalexin [Keflex] 500 mg PO TID #30 capsule Metoprolol Succinate [Toprol XL] 50 mg PO BID #60 tab Home Medications: Medication Instructions Recorded Confirmed Type Apixaban [Eliquis] 5 mg PO BID #60 tab 03/17/20 Rx Blue-Green Algae [Spirulina] 1,000 mg PO DAILY 03/17/20 03/17/20 History Calcium/Magnesium/Vitamin D3 1 tab PO DAILY 03/17/20 03/17/20 History [Kirt-Mag Complex 300-150 mg Tab] Cephalexin [Keflex] 500 mg PO TID #30 capsule 03/17/20 Rx Magnesium 250 mg PO DAILY-AC 03/17/20 03/17/20 History Metoprolol Succinate [Toprol XL] 50 mg PO BID #60 tab 03/17/20 Rx Saccharomyces Boulardii [Florastor] 250 mg PO DAILY #30 capsule 03/17/20 Rx Vit B Complex 100 Combo No.2 100 mg PO DAILY 03/17/20 03/17/20 History [B-100 Complex] Allergies: Penicillins Allergy (Verified 03/14/20 01:50) - Discharge Instructions Discharge Instructions:: please follow up with primary care doctor. Activity:: Activity as Tolerated Nourishment:: Heart Healthy Diet Therapies:: Physical Therapy - Follow up Plan Referrals: Gadiel Michel MD [Primary Care Provider] - 7 Days Ernesto Medina MD [Active] - (For outpatient stress test) Gareth Lino MD [Active] - Disposition: HOME Quality - Care Measures CORE MEASURES:: N/A
--- NOTE | 2020-03-18 10:38 | PQF ---
CLINICAL DOCUMENTATION CLARIFICATION FORM: Dear Dr. Cristine Mcallister Date: 03.18.20 Please exercise your independent, professional judgment in responding to the clarification form. Clinical indicators are provided on the bottom of this form for your review. Please check appropriate box(es) to clarify if the following diagnosis has been ruled in our ruled out: Sepsis [ ] Ruled in diagnosis [ x] Continue to treat [ ] Resolved [ ] Ruled out diagnosis [ ] Improving [ ] Cannot rule out diagnosis [ ] Other diagnosis [ ] Unable to determine For continuity of documentation, please document condition throughout progress notes and discharge summary. Thank You. To be completed by CDI/Coding staff for physician review: CLINICAL INDICATORS - SIGNS / SYMPTOMS / LABS / RESULTS AND LOCATION IN MR 12. ED: AMS; RLE cellulitis; sepsis *T 101.7 RECTAL * P 64-105 * RR 21-24 LABS: WBC LACTIC ACID . 15.8 3.8 / 2.7 03.13 H&P ([facility]): Acute metabolic encephalopathy; hyperkalemia; sepsis, unclear source; mild elevated troponins, lactic acidosis; . PN ([facility]): acute metabolic encephalopathy; right leg cellulitis; a- flutter; lactic acidosis; bacteremia; RISK FACTORS / RESULTS AND LOCATION IN MR .24 PN ([facility]): Right leg cellulitis TREATMENTS / RESULTS AND LOCATION IN MR 12.23 ED: * Calcium gluconate IV * D%W 1 amp * Tylenol 975 rectal * Vancomycin IV * Cefepime IV MAR: *Cefepime IV (03.13) * Vancomycin IV (03.14) CPOE: *ID consult ([facility] 03.15) CDS Signature: Deisy Weaver RN, CCDS Phone #: [phone] [email or web address] This is a permanent part of the Medical Record [facility]
--- NOTE | 2020-03-18 10:48 | PQF ---
CLINICAL DOCUMENTATION CLARIFICATION FORM: Dear Dr. Cristine Mcallister Date: 03-18-20 Please exercise your independent, professional judgment in responding to the clarification form. Clinical indicators are provided on the bottom of this form for your review. Please check appropriate box(es): [x ] Type 2 SD (T2MI) [ ] Insignificant Lab Value elevated troponin [x ] Other diagnosis ____demand [ ] Unable to determine For continuity of documentation, please document condition throughout progress notes and discharge summary. Thank You. To be completed by CDI/Coding staff for physician review: CLINICAL INDICATORS - SIGNS / SYMPTOMS / LABS / RESULTS AND LOCATION IN EMR 03.13 ED: AMS; RLE cellulitis; sepsis *T 101.7 RECTAL * P 64-105 * RR 21-24 LABS: Troponin I 12. @ 1119 0.055 12. @ 1457 0.095 12. @ 1721 0.113 12. @ 2137 0.095 . @ 0101 0.085 .25 @ 1716 0.047 03.13 H&P ([facility]): *mild elevated troponins; . PN ([facility]): acute metabolic encephalopathy; right leg cellulitis; a- flutter; lactic acidosis; bacteremia; 03.14 ECHO: EF 55-60%; impaired relaxation compatible w/ diastolic dysfunction (reversed E/A ratio) 03.15 Consult (Adam): Pt denies having any chest discomfort; new onset A- Fib; Aortic stenosis; HTN RISK FACTORS / RESULTS AND LOCATION IN MR 03.14 PN ([facility]): Right leg cellulitis; New onset A-Fib TREATMENTS / RESULTS AND LOCATION IN MR 03.13 ED: *Calcium gluconate IV *D%W 1 amp * Tylenol 975 rectal * Vancomycin IV * Cefepime IV MAR: *Cefepime IV (03.13) * Vancomycin IV (03.14) CPOE: *ID consult (Zoie 03.15) *Cardiology Consult (03.16): Needs to be on long-term anticoagulation therapy for prevention of thromboembolism.the pt will be started on Toprol. 03.14 ECHO CDS Signature: Deisy Weaver RN, CCDS Phone #: [phone] [email or web address] This is a permanent part of the Medical Record [facility]
== END 2020-03-17 15:56 | disposition home or self-care (01) | DRG 871 ==
LOC: ERS 10:59 → ERHOLD 13:42 → 2SE 03-14 00:48
PROVIDERS: ADMIT Internal Medicine; ATTEND Internal Medicine
DX: A40.8 Other streptococcal sepsis (principal); G93.41 Metabolic encephalopathy; I21.A1 Myocardial infarction type 2; L03.115 Cellulitis of right lower limb; I48.92 Unspecified atrial flutter; E87.2 Acidosis; Z20.828 Contact with and (suspected) exposure to other viral communicable diseases; R77.8 Other specified abnormalities of plasma proteins; I10 Essential (primary) hypertension; G43.909 Migraine, unspecified, not intractable, without status migrainosus; F31.9 Bipolar disorder, unspecified; G30.9 Alzheimer's disease, unspecified; F02.80 Dementia in other diseases classified elsewhere, unspecified severity, without behavioral disturbance, psychotic disturbance, mood disturbance, and anxiety; E86.0 Dehydration; I48.0 Paroxysmal atrial fibrillation; E87.5 Hyperkalemia; F41.0 Panic disorder [episodic paroxysmal anxiety]; I87.2 Venous insufficiency (chronic) (peripheral); I35.0 Nonrheumatic aortic (valve) stenosis; Z88.0 Allergy status to penicillin; Z79.899 Other long term (current) drug therapy; Z87.891 Personal history of nicotine dependence
CPT/HCPCS: 36415; 36416; 51701; 70450; 70551; 71045; 74018; 80048; 80053; 80061; 80202; 80306; 81003; 81015; 82550; 82553; 82565; 83605; 83735; 84132; 84484; 85014; 85018; 85025; 85049; 85610; 85730; 87040; 87077; 87086; 87149; 87186; 87635; 93005; 93010; 93306; 96365; 96375; 99292; J0690; J0692; J1650; J3370; J3475; J3490; J7050; U0003

== ENCOUNTER 2021-03-28 14:09 | Outpatient (CLI) | payer MEDICARE | END 2021-03-28 14:10 | disposition home or self-care (01) | LOC: BICMAMMO 14:09 | PROVIDERS: ATTEND Internal Medicine | DX: Z12.31 Encounter for screening mammogram for malignant neoplasm of breast (principal); Z13.820 Encounter for screening for osteoporosis; M85.851 Other specified disorders of bone density and structure, right thigh; M85.852 Other specified disorders of bone density and structure, left thigh | CPT/HCPCS: 77063; 77067; 77080 ==

== ENCOUNTER 2021-10-31 12:14 | Emergency (ER) | payer MEDICARE ==
[2021-10-31 12:40] LABS: #Eosinphils 0.1 thou/uL (0.0-0.7); #Lymphocytes 0.8 thou/uL (1.20-3.40); #Monocytes 0.4 thou/uL (0.11-0.59); #Neutrophils 3.9 thou/uL (1.40-6.50); %Basophils 0.8 % (0.0-1.0); %Eosinophils 1.6 % (0.0-10.0); %Lymphocytes 16.1 % (21.0-51.0); %Monocytes 6.9 % (0.0-10.0); %Neutrophils 74.6 % (42.0-75.0); Hemoglobin 11.6 g/dL (12.0-16.0); Mean Corpuscular HGB CONC 32.7 g/dL (32.0-36.0); Mean Corpuscular Volume 95.1 fL (78.0-98.0); Mean Platelet Volume 8.3 fL (7.4-10.4); Platelet Count 143 thou/uL (130-400); RBC Distribution Width 12.4 % (11.5-14.5); Red Blood Cell (RBC) Count 3.74 mill/uL (4.20-5.40); White Blood Cell (WBC) Count 5.2 thou/uL (4.8-10.8)
[2021-10-31 13:10] LABS: ALT (SGPT) 29 U/L (8-55); AST (SGOT) 33 U/L (5-34); Alkaline Phosphatase 145 U/L (40-110); Anion Gap 14 mmol/L (10-20); BUN (Urea Nitrogen) 15 mg/dL (9.8-20.1); Bilirubin, Total 1.1 mg/dL (0.2-1.2); Calc. Creatinine Clearance 0 mL/min (70-130); Calcium 9.7 mg/dL (7.8-10.44); Carbon Dioxide 27 mmol/L (23-31); Chloride 95 mmol/L (98-107); Estimated GFR 58; Glucose 159 mg/dL (83-110); Potassium 3.2 mmol/L (3.5-5.1); Sodium 133 mmol/L (136-145)
[2021-10-31 16:07] LABS: Bilirubin Negative (Negative); Blood, Urine Negative (Negative); Clarity Clear (Clear); Glucose, Urine (Dipstick) Normal (Negative); Ketone, Urine Negative (Negative); Leukocyte Negative Leu/uL (Negative); Nitrite Negative (Negative); Protein, Urine (Dipstick) Negative (Neg-Trace); Specific Gravity, Urine 1.007 (1.002-1.036); Urobilinogen Normal mg/dL (Less than 2)
[2021-10-31] MEDS ORDERED: Clindamycin 150 MG CAP ONE (17:45)
== END 2021-10-31 17:50 | disposition home or self-care (01) ==
LOC: ERS 12:14
DX: L03.115 Cellulitis of right lower limb (principal); I10 Essential (primary) hypertension; Z79.899 Other long term (current) drug therapy
CPT/HCPCS: 36415; 80053; 81003; 83605; 85025; 87040

== ENCOUNTER 2023-08-09 12:30 | Emergency (ER) | payer MEDICARE ==
[2023-08-09 14:20] LABS: #Basophils Less than 0.03 10x3/uL (0.0-0.2); %Basophils 0.6 % (0.0-1.0); %Eosinophils 6.7 % (0.0-10.0); %Lymphocytes 30.9 % (21.0-51.0); %Monocytes 14.8 % (0.0-10.0); Hematocrit 33.2 % (36.0-47.0); Hemoglobin 10.8 g/dL (12.0-16.0); Mean Corpuscular HGB CONC 32.5 g/dL (32.0-36.0); Mean Corpuscular Hemoglobin 29.6 pg (27.0-31.0); Mean Platelet Volume 10.9 fL (7.4-10.4); Platelet Count 123 10x3/uL (130-400); RBC Distribution Width 13.6 % (11.5-14.5); Red Blood Cell (RBC) Count 3.65 mill/uL (4.20-5.40)
[2023-08-09 14:37] LABS: ALT (SGPT) 19 U/L (8-55); AST (SGOT) 33 U/L (5-34); Albumin 3.6 g/dL (3.4-4.8); Alkaline Phosphatase 146 U/L (40-110); Anion Gap 13 mmol/L (10-20); BUN (Urea Nitrogen) 18 mg/dL (9.8-20.1); Bilirubin, Total 0.8 mg/dL (0.2-1.2); Calc. Creatinine Clearance 0 mL/min (70-130); Calcium 10.1 mg/dL (7.8-10.44); Carbon Dioxide 28 mmol/L (23-31); Chloride 102 mmol/L (98-107); Estimated GFR 52; Globulin 4.3 g/dL (2.4-3.5); Glucose 99 mg/dL (83-110); INR-International Normal Ratio 1.4; Lipase 20 U/L (8-78); Potassium 3.7 mmol/L (3.5-5.1); Protein, Total 7.9 g/dL (5.8-8.1); Prothrombin Time 16.7 sec (12.0-14.7); Sodium 139 mmol/L (136-145)
[2023-08-09 14:38] LABS: PTT 33.1 sec (22.9-36.1)
[2023-08-09 14:41] LABS: Troponin I 0.018 ng/mL (< 0.028)
== END 2023-08-09 16:15 | disposition home or self-care (01) ==
LOC: ERS 12:30
DX: R07.9 Chest pain, unspecified (principal); I10 Essential (primary) hypertension
CPT/HCPCS: 36415; 71045; 80053; 83690; 83880; 84484; 85025; 85610; 85730; 93005

== ENCOUNTER 2025-02-05 02:09 | Inpatient (IN) | payer MEDICARE ==
[2025-02-05 02:59] LABS: #Basophils Less than 0.03 10x3/uL (0.0-0.2); #Eosinophils Less than 0.03 10x3/uL (0.0-0.7); #Monocytes 0.73 10x3/uL (0.11-0.59); #Neutrophils 10.15 10x3/uL (1.40-6.50); %Basophils 0.2 % (0.0-1.0); %Eosinophils 0.1 % (0.0-10.0); %Lymphocytes 3.4 % (21.0-51.0); %Monocytes 6.4 % (0.0-10.0); %Neutrophils 89.5 % (42.0-75.0); Hematocrit 37.8 % (36.0-47.0); Hemoglobin 12.0 g/dL (12.0-16.0); Mean Corpuscular Hemoglobin 30.1 pg (27.0-31.0); Mean Corpuscular Volume 94.7 fL (78.0-98.0); Platelet Count 102 10x3/uL (130-400); Red Blood Cell (RBC) Count 3.99 mill/uL (4.20-5.40); White Blood Cell (WBC) Count 11.34 10x3/uL (4.8-10.8)
[2025-02-05 03:06] LABS: ALT (SGPT) 40 U/L (Less than 34); AST (SGOT) 49 U/L (11-34); Albumin 3.8 g/dL (3.1-4.5); Alkaline Phosphatase 226 U/L (40-110); Anion Gap 18 mmol/L (10-20); BUN (Urea Nitrogen) 16 mg/dL (9.8-20.1); Bilirubin, Total 1.2 mg/dL (0.3-1.2); Calc. Creatinine Clearance 0 mL/min (70-130); Calcium 9.3 mg/dL (7.8-10.44); Carbon Dioxide 21 mmol/L (23-31); Chloride 100 mmol/L (98-107); Globulin 4.1 g/dL (2.4-3.5); Glucose 198 mg/dL (83-110); Potassium 4.6 mmol/L (3.5-5.1); Sodium 134 mmol/L (136-145)
[2025-02-05 03:44] LABS: Platelet Adequacy Comment Platelets Decreased; RBC Morphology Within Normal Limits
[2025-02-05 03:55] LABS: INR-International Normal Ratio 1.2; Prothrombin Time 15.3 sec (12.0-14.7)
[2025-02-05 03:56] LABS: PTT 28.3 sec (22.9-36.1)
[2025-02-05 05:15] LABS: CAUTI Indications for Culture Alt mental st,lethar; Glucose, Urine (Dipstick) Normal (Negative); Leukocyte Negative Leu/uL (Negative); Protein, Urine (Dipstick) 10 mg/dL (Neg-Trace); RBC/HPF 0-3 HPF (0-3); Specific Gravity, Urine 1.021 (1.002-1.036)
[2025-02-05 05:16] LABS: Bacteria/HPF 1+ HPF (None Seen)
[2025-02-05 05:17] LABS: Urine Culture Reflex No No
[2025-02-05] MEDS ORDERED: hydrALAZINE 20 MG/ML VIAL SLOW IVP PRN (09:38)
[2025-02-05] MEDS ORDERED: Acetaminophen 325 MG TAB PO PRN (09:38)
[2025-02-05] MEDS ORDERED: Melatonin 3 MG TAB PO PRN (09:38)
[2025-02-05] MEDS ORDERED: Ondansetron PF 4 MG/2 ML Vial IVP PRN (09:38)
[2025-02-05] MEDS ORDERED: Senokot S 8.6-50 MG TAB PO PRN (09:38)
[2025-02-05] MEDS ORDERED: Iopamidol-370 76% 500 ML MDV (1 ML CHARGE) ONE (10:38)
[2025-02-05 11:07] VITALS: BMI 28.2
[2025-02-05] MEDS: Apixaban 5 MG TAB PO SCH (21:21)
[2025-02-05] MEDS: Metoprolol Succinate XL 50 MG ER.TAB PO SCH (21:21)
[2025-02-05] MEDS: Magnesium Oxide 400 MG TAB PO SCH (21:22)
[2025-02-05] MEDS: Metoprolol Tartrate 5 MG (5 mL) VIAL IVP SCH (22:18)
[2025-02-06] MEDS: Metoprolol Tartrate 5 MG (5 mL) VIAL IVP SCH (00:30)
[2025-02-06 05:27] LABS: Anion Gap 11 mmol/L (10-20); BUN (Urea Nitrogen) 16 mg/dL (9.8-20.1); Calc. Creatinine Clearance 70 mL/min (70-130); Calcium 9.0 mg/dL (7.8-10.44); Carbon Dioxide 26 mmol/L (23-31); Cardiac Risk 3.2 (Less than 4.5); Chloride 102 mmol/L (98-107); Cholesterol 162 mg/dl (< 200 Desired); Glucose 138 mg/dL (83-110); HDL Cholesterol 50 mg/dL (>60 Neg Risk); LDL Cholesterol, Calculated 99 mg/dL; Potassium 3.9 mmol/L (3.5-5.1); Sodium 135 mmol/L (136-145); Triglycerides 67 mg/dL (Less than 150)
[2025-02-06 05:49] LABS: #Basophils 0.03 10x3/uL (0.0-0.2); #Eosinophils 0.08 10x3/uL (0.0-0.7); #Monocytes 0.69 10x3/uL (0.11-0.59); #Neutrophils 3.72 10x3/uL (1.40-6.50); %Basophils 0.5 % (0.0-1.0); %Eosinophils 1.4 % (0.0-10.0); %Lymphocytes 20.8 % (21.0-51.0); %Monocytes 12.1 % (0.0-10.0); %Neutrophils 65.0 % (42.0-75.0); Hematocrit 34.8 % (36.0-47.0); Hemoglobin 11.1 g/dL (12.0-16.0); Mean Corpuscular Hemoglobin 30.8 pg (27.0-31.0); Mean Corpuscular Volume 96.7 fL (78.0-98.0); Platelet Count 96 10x3/uL (130-400); Red Blood Cell (RBC) Count 3.60 mill/uL (4.20-5.40); White Blood Cell (WBC) Count 5.72 10x3/uL (4.8-10.8)
[2025-02-06] MEDS: Spironolactone 25 MG TAB PO SCH (11:50)
[2025-02-06] MEDS: Aspirin 81 mg Enteric Coated Tablet PO SCH (11:50)
[2025-02-07 04:47] LABS: #Basophils Less than 0.03 10x3/uL (0.0-0.2); #Eosinophils 0.14 10x3/uL (0.0-0.7); #Monocytes 0.57 10x3/uL (0.11-0.59); #Neutrophils 2.34 10x3/uL (1.40-6.50); %Basophils 0.5 % (0.0-1.0); %Eosinophils 3.4 % (0.0-10.0); %Lymphocytes 25.4 % (21.0-51.0); %Monocytes 13.8 % (0.0-10.0); %Neutrophils 56.4 % (42.0-75.0); Hematocrit 32.4 % (36.0-47.0); Hemoglobin 10.0 g/dL (12.0-16.0); Mean Corpuscular Hemoglobin 30.0 pg (27.0-31.0); Mean Corpuscular Volume 97.3 fL (78.0-98.0); Platelet Count 87 10x3/uL (130-400); Red Blood Cell (RBC) Count 3.33 mill/uL (4.20-5.40); White Blood Cell (WBC) Count 4.14 10x3/uL (4.8-10.8)
[2025-02-07 04:54] LABS: Anion Gap 12 mmol/L (10-20); BUN (Urea Nitrogen) 17 mg/dL (9.8-20.1); Calc. Creatinine Clearance 60 mL/min (70-130); Calcium 8.9 mg/dL (7.8-10.44); Carbon Dioxide 23 mmol/L (23-31); Chloride 105 mmol/L (98-107); Glucose 119 mg/dL (83-110); Potassium 3.8 mmol/L (3.5-5.1); Sodium 136 mmol/L (136-145)
[2025-02-07] MEDS: Metoprolol Succinate XL 25 MG ER.TAB PO SCH (08:14)
[2025-02-07] MEDS: Metoprolol Tartrate 5 MG (5 mL) VIAL IVP SCH (08:14)
[2025-02-07 17:41] VITALS: BP 153/81; TEMP 98.7
== END 2025-02-07 18:19 | disposition home health service (06) | DRG 57 ==
LOC: ERS 02:09 → ERHOLD 09:10 → OBS 11:05 → OBSVTOIN 02-06 08:33
PROVIDERS: ADMIT Internal Medicine; ATTEND Family Medicine
DX: G91.2 (Idiopathic) normal pressure hydrocephalus (principal); I50.32 Chronic diastolic (congestive) heart failure; L03.116 Cellulitis of left lower limb; R55 Syncope and collapse; G43.909 Migraine, unspecified, not intractable, without status migrainosus; I48.91 Unspecified atrial fibrillation; F31.9 Bipolar disorder, unspecified; I87.2 Venous insufficiency (chronic) (peripheral); D64.9 Anemia, unspecified; R74.01 Elevation of levels of liver transaminase levels; I77.819 Aortic ectasia, unspecified site; I11.0 Hypertensive heart disease with heart failure; D69.6 Thrombocytopenia, unspecified; Z98.890 Other specified postprocedural states; Z88.0 Allergy status to penicillin; Z88.2 Allergy status to sulfonamides; Z91.018 Allergy to other foods; Z79.01 Long term (current) use of anticoagulants
CPT/HCPCS: 36415; 36416; 70450; 70551; 71275; 72125; 80048; 80053; 80061; 81001; 83880; 84484; 85025; 85610; 85730; 86141; 93005; 93010; 93306; 95819; 96374; 96375; 96376; G0378; J2060; Q9967

== ENCOUNTER 2025-02-08 12:38 | Emergency (ER) | payer MEDICARE ==
[2025-02-08 13:20] LABS: #Basophils Less than 0.03 10x3/uL (0.0-0.2); #Eosinophils 0.14 10x3/uL (0.0-0.7); #Monocytes 0.55 10x3/uL (0.11-0.59); #Neutrophils 2.73 10x3/uL (1.40-6.50); %Basophils 0.5 % (0.0-1.0); %Eosinophils 3.2 % (0.0-10.0); %Lymphocytes 21.9 % (21.0-51.0); %Monocytes 12.4 % (0.0-10.0); %Neutrophils 61.8 % (42.0-75.0); Hematocrit 35.3 % (36.0-47.0); Hemoglobin 11.5 g/dL (12.0-16.0); Mean Corpuscular Hemoglobin 30.2 pg (27.0-31.0); Mean Corpuscular Volume 92.7 fL (78.0-98.0); Platelet Count 93 10x3/uL (130-400); Red Blood Cell (RBC) Count 3.81 mill/uL (4.20-5.40); White Blood Cell (WBC) Count 4.42 10x3/uL (4.8-10.8)
[2025-02-08 13:40] LABS: ALT (SGPT) 28 U/L (Less than 34); AST (SGOT) 44 U/L (11-34); Albumin 3.5 g/dL (3.1-4.5); Alkaline Phosphatase 186 U/L (40-110); Anion Gap 17 mmol/L (10-20); BUN (Urea Nitrogen) 18 mg/dL (9.8-20.1); Bilirubin, Total 0.8 mg/dL (0.3-1.2); Calc. Creatinine Clearance 0 mL/min (70-130); Calcium 9.4 mg/dL (7.8-10.44); Carbon Dioxide 21 mmol/L (23-31); Chloride 102 mmol/L (98-107); Globulin 4.5 g/dL (2.4-3.5); Glucose 152 mg/dL (83-110); Potassium 4.3 mmol/L (3.5-5.1); Sodium 136 mmol/L (136-145)
[2025-02-08 13:54] LABS: Magnesium 2.0 mg/dL (1.6-2.6)
== END 2025-02-08 14:52 | disposition home or self-care (01) ==
LOC: ERS 12:38
DX: I48.91 Unspecified atrial fibrillation (principal); I11.0 Hypertensive heart disease with heart failure; I50.9 Heart failure, unspecified; G43.909 Migraine, unspecified, not intractable, without status migrainosus; F31.9 Bipolar disorder, unspecified; F41.0 Panic disorder [episodic paroxysmal anxiety]; Z79.899 Other long term (current) drug therapy; Z79.01 Long term (current) use of anticoagulants
CPT/HCPCS: 71045; 80053; 83735; 83880; 84484; 85025; 93005

== ENCOUNTER 2025-02-27 15:38 | Emergency (ER) | payer MEDICARE ==
[2025-02-27 16:12] LABS: #Basophils 0.03 10x3/uL (0.0-0.2); #Eosinophils 0.15 10x3/uL (0.0-0.7); #Monocytes 0.45 10x3/uL (0.11-0.59); #Neutrophils 1.96 10x3/uL (1.40-6.50); %Basophils 0.8 % (0.0-1.0); %Eosinophils 3.9 % (0.0-10.0); %Lymphocytes 31.8 % (21.0-51.0); %Monocytes 11.8 % (0.0-10.0); %Neutrophils 51.4 % (42.0-75.0); Hematocrit 37.3 % (36.0-47.0); Hemoglobin 11.6 g/dL (12.0-16.0); Mean Corpuscular Hemoglobin 30.4 pg (27.0-31.0); Mean Corpuscular Volume 97.6 fL (78.0-98.0); Platelet Count 123 10x3/uL (130-400); Red Blood Cell (RBC) Count 3.82 mill/uL (4.20-5.40); White Blood Cell (WBC) Count 3.81 10x3/uL (4.8-10.8)
[2025-02-27 16:22] LABS: ALT (SGPT) 38 U/L (Less than 34); AST (SGOT) 53 U/L (11-34); Albumin 3.9 g/dL (3.1-4.5); Alkaline Phosphatase 224 U/L (40-110); Anion Gap 15 mmol/L (10-20); BUN (Urea Nitrogen) 16 mg/dL (9.8-20.1); Bilirubin, Total 0.6 mg/dL (0.3-1.2); Calc. Creatinine Clearance 0 mL/min (70-130); Calcium 9.5 mg/dL (7.8-10.44); Carbon Dioxide 26 mmol/L (23-31); Chloride 103 mmol/L (98-107); Globulin 4.2 g/dL (2.4-3.5); Glucose 122 mg/dL (83-110); Magnesium 1.9 mg/dL (1.6-2.6); Potassium 4.8 mmol/L (3.5-5.1); Sodium 139 mmol/L (136-145)
== END 2025-02-27 20:00 | disposition home or self-care (01) ==
LOC: ERS 15:38
DX: I89.0 Lymphedema, not elsewhere classified (principal); D72.819 Decreased white blood cell count, unspecified; R74.01 Elevation of levels of liver transaminase levels; I11.0 Hypertensive heart disease with heart failure; I50.32 Chronic diastolic (congestive) heart failure; I48.91 Unspecified atrial fibrillation; Z79.01 Long term (current) use of anticoagulants; Z79.899 Other long term (current) drug therapy
CPT/HCPCS: 71045; 80053; 83735; 83880; 84484; 85025; 93005